=== PATIENT | male | born 1955 | race Caucasian/White ===

== ENCOUNTER → 2024-11-11 11:15 | Outpatient (REF) | payer MEDICARE, OTHER, SELFPAY | LOC: HWRCS 11:15 | PROVIDERS: ATTENDING PHYSICIAN Internal Medicine Cardiovascular Disease; FAMILY PHYSICIAN Internal Medicine | DX: Z86.73 Personal history of transient ischemic attack (TIA), and cerebral infarction without residual deficits (principal) | CPT/HCPCS: 93306 ==

== ENCOUNTER → 2025-09-16 19:24 | Outpatient (REF) | payer MEDICARE, OTHER, SELFPAY | LOC: PAVMRI 19:24 | PROVIDERS: ATTENDING PHYSICIAN Physician Assistant Surgical; FAMILY PHYSICIAN Internal Medicine | DX: R10.32 Left lower quadrant pain (principal) | CPT/HCPCS: 73721 ==